=== PATIENT | female | born 1960 | race African-American/Black ===

== ENCOUNTER → 2016-07-20 | Outpatient (CLI) | payer BC ==
[2013-11-27 01:00] VITALS: BP 168/77
--- NOTE | 2016-07-20 10:14 | RAD ---
Renal ultrasound, 07/20/2016: History: Possible renal mass No previous imaging is available at this time for comparison purposes. The right kidney measures 10.1 cm in length while the left kidney measures 10.2 cm. There is no evidence of hydronephrosis. There is a 1.2 cm lesion in the lateral aspect of the left kidney which appears to be predominantly cystic. There is an echogenic focus along the margin of this lesion which may represent calcification. No other renal mass is identified. The partially filled urinary bladder is unremarkable. IMPRESSION: 1. Small complicated cyst in the left kidney as described above. Multiphasic CT scanning is suggested for optimal characterization. 2. The kidneys are otherwise unremarkable.
== END | disposition home or self-care (01) ==
LOC: US 08:43
PROVIDERS: ATTEND Family Medicine
DX: N28.9 Disorder of kidney and ureter, unspecified (principal)
CPT/HCPCS: 76770